=== PATIENT | female | born 1955 | race Caucasian/White ===

== ENCOUNTER → 2019-04-10 14:21 | Outpatient (CLI) | payer MEDICARE, OTHER, SELFPAY ==
[2019-04-10 14:42] LABS: Bacteria Urine None Seen
[2019-04-10 15:29] LABS: Add Manual Diff / Slide Review NO; Basophils Absolute Auto 100 /uL (0-100); Basophils Percent Auto 1.1 % (0-2); Eosinophils Absolute Auto 100 /uL (0-450); Hematocrit 45.4 % (36-46); Hemoglobin 15.1 g/dL (12.0-16.0); Lymphocytes Absolute Auto 2100 /uL (1100-4500); Lymphocytes Percent Auto 23.3 % (25-40); Mean Corpuscular HGB Conc 33.3 % (30-36); Mean Corpuscular Hemoglobin 29.5 PG (26-34); Mean Corpuscular Volume 88.6 fL (80-100); Monocytes Absolute Auto 600 /uL (0-900); Neutrophils Absolute Auto 6000 /uL (1500-7000); Neutrophils Percent Auto 67.6 % (50-75); Platelet Count 214 X10^3/uL (150-400); Red Blood Cell Count 5.13 X10^6/uL (4.0-5.2)
[2019-04-10 15:43] LABS: Hemoglobin A1C% w Est Avg Glu 5.8 % (4.0-6.0)
[2019-04-10 15:47] LABS: BUN Creatinine Ratio 35.7 (6-22); Blood Urea Nitrogen 25 mg/dL (7-17); Calcium 9.4 mg/dL (8.4-10.2); Carbon Dioxide 21 mmol/L (22-32); Chloride 107 mmol/L (98-107); Estimated Glomerular Filt Rate > 60.0 mL/min (>60); Glucose 89 mg/dL (80-110); HEMOLYSIS < 15 (0-50); Potassium 4.2 mmol/L (3.4-5.1); Sodium 139 mmol/L (137-145)
[2019-04-10 15:54] LABS: Appearance Urine UA SL CLOUDY; Bilirubin Urine UA NEGATIVE (NEGATIVE); Color Urine UA YELLOW; Glucose Urine UA NEGATIVE (Negative); Ketones Urine UA NEGATIVE (NEGATIVE); Leukocyte Esterase Urine UA NEGATIVE (NEGATIVE); Nitrite Urine UA NEGATIVE (Negative); Occult Blood Urine UA 1+ (Negative); Protein Urine UA NEGATIVE (Negative); Specific Gravity Urine UA >=1.030 (1.000-1.035); Urobilinogen Urine UA 0.2 E.U./dL (0.2)
[2019-04-10 16:12] LABS: Culture Indicated Urine Cult Not Indicated; RBC Urine 1-5/HPF (0-5/HPF); Squamous Epithelial Cell Urine 1-5 /HPF (0-5/HPF); Uric Acid Crystals Urine Many; WBC Urine 0-1/HPF (0-5/HPF)
== END ==
PROVIDERS: Referring Provider Orthopaedic Surgery; Visit Provider Orthopaedic Surgery
DX: Z01.818 Encounter for other preprocedural examination (principal); Z01.812 Encounter for preprocedural laboratory examination; R73.9 Hyperglycemia, unspecified; N39.0 Urinary tract infection, site not specified
CPT/HCPCS: 36415; 80048; 81001; 83036; 85025; 93005

== ENCOUNTER → 2019-04-11 05:47 | Outpatient (CLI) | payer MEDICARE, OTHER, SELFPAY ==
--- NOTE | 2019-04-11 06:10 | DI.MRI.S_ITS ---
PROCEDURE: MR KNEE LT WO CON INDICATIONS: M17.12 TECHNIQUE: Noncontrast sagittal PD fast spin echo and T2 fast spin echo with fat saturation, sagittal 3-D FLASH with fat saturation; coronal T1 spin echo and PD fast spin echo with fat saturation, and axial PD fast spin echo with fat saturation through the knee. COMPARISON: [facility] [place], [place], XR KNEE ARTHRITIC SERIES LT, 04/10/2019, 12:57. FINDINGS: Image quality: Excellent. Menisci: Poorly defined tear involving the posterior horn and body of the medial meniscus, possibly the posterior root. There is complete extrusion of the body. Lateral meniscus demonstrates possible myxoid degeneration of the body however no discrete tear of the seen by strict criteria. Cruciate ligaments: ACL is not well seen in keeping with complete rupture however this finding technically age-indeterminate and may be chronic. Posterior cruciate ligament appears grossly intact although internal signal changes suggest low-grade sprain versus mild mucoid degeneration. Medial structures: There is medial bowing of the medial collateral ligament, with mild internal signal changes and no complete rupture. There is adjacent soft tissue edema. The appearance could reflect reactive changes to medial compartment pathology, versus low-grade sprain of the MCL. Pes anserinus tendons appear grossly unremarkable. Semimembranosus tendon appears intact. Lateral structures: The lateral collateral ligament intact. Biceps femoris tendon appears intact. Popliteus tendon grossly unremarkable. Iliotibial band appears intact. Anterior structures: Quadriceps tendon intact. Medial and lateral patellofemoral ligaments intact. There is mild patellar tendinopathy. Prepatellar and superficial infrapatellar subcutaneous edema/fluid. Bones and cartilage: No focal marrow contusion or discrete low signal fracture line. Extensive bulky osteophyte formation is seen. Within the medial compartment, full-thickness loss of the femoral tibial articular cartilage, with subchondral sclerosis, cystic change and marrow edema. Partial-thickness loss of the posterior articular cartilage seen on the axial pulse sequence. Within the lateral compartment, diffuse surface fraying of the femoral and tibial articular cartilage without focal defect. There is also diffuse full-thickness loss of the posterior articular cartilage seen on axial pulse sequences. Within the patellofemoral compartment, near full-thickness loss of the cartilage overlying the lateral patellar facet. Elsewhere, there is diffuse partial-thickness loss surface fraying/fibrillation of the patellar and trochlear cartilage Joint space: Large joint effusion. Large Tejada's cyst. This measures approximately 7 cm in the cephalocaudad dimension. 5 mm loose body seen posterior to the lateral femoral condyle image 16/6. There are additional subcentimeter probable loose bodies seen within the medial aspect of the suprapatellar recess for example image 2/6. IMPRESSION: Poorly defined tear involving the posterior horn, root and body of the medial meniscus with complete extrusion. Lateral meniscus myxoid degeneration without discrete tear . 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 Low-grade sprain versus mucoid degeneration of the PCL (also likely chronic although age unknown). Severe degenerative joint disease including bulky diffuse osteophyte formation. Areas of near full thickness and full-thickness articular cartilage loss seen in all 3 compartments. Large joint effusion Large Tejada's cyst. Scattered multiple loose bodies as detailed above Dictated by: Vel Reed M.D. on 04/11/2019 at 9:09 Approved by: Vel Reed M.D. on 04/11/2019 at 9:21
== END ==
PROVIDERS: Referring Provider Orthopaedic Surgery; Visit Provider Orthopaedic Surgery
DX: M17.12 Unilateral primary osteoarthritis, left knee (principal); S83.242A Other tear of medial meniscus, current injury, left knee, initial encounter; M25.462 Effusion, left knee; M71.22 Synovial cyst of popliteal space [Baker], left knee
CPT/HCPCS: 73721

== ENCOUNTER → 2019-10-02 10:30 | Outpatient (CLI) | payer MEDICARE, OTHER, SELFPAY ==
[2019-10-02 11:24] LABS: Bacteria Urine None Seen; WBC Urine None Seen (0-5/HPF)
[2019-10-02 12:13] LABS: Appearance Urine UA CLEAR; Bilirubin Urine UA NEGATIVE (NEGATIVE); Color Urine UA YELLOW; Glucose Urine UA NEGATIVE (Negative); Ketones Urine UA NEGATIVE (NEGATIVE); Leukocyte Esterase Urine UA NEGATIVE (NEGATIVE); Nitrite Urine UA NEGATIVE (Negative); Occult Blood Urine UA 1+ (Negative); Protein Urine UA NEGATIVE (Negative); Specific Gravity Urine UA 1.025 (1.000-1.035); Urobilinogen Urine UA 0.2 E.U./dL (0.2)
[2019-10-02 12:16] LABS: Add Manual Diff / Slide Review NO; Basophils Absolute Auto 100 /uL (0-100); Basophils Percent Auto 0.8 % (0-2); Eosinophils Absolute Auto 100 /uL (0-450); Hematocrit 44.7 % (36-46); Hemoglobin 14.6 g/dL (12.0-16.0); Lymphocytes Absolute Auto 1600 /uL (1100-4500); Lymphocytes Percent Auto 20.6 % (25-40); Mean Corpuscular HGB Conc 32.6 % (30-36); Mean Corpuscular Hemoglobin 29.1 PG (26-34); Monocytes Absolute Auto 600 /uL (0-900); Monocytes Percent Auto 7.3 % (3-14); Neutrophils Absolute Auto 5600 /uL (1500-7000); Neutrophils Percent Auto 70.3 % (50-75); Platelet Count 243 X10^3/uL (150-400); Red Blood Cell Count 5.02 X10^6/uL (4.0-5.2); Red Cell Distribution Width 14.5 % (11.6-14.8); White Blood Cell Count 7.9 X10^3/uL (4.5-11.0)
[2019-10-02 12:18] LABS: Culture Indicated Urine Cult Not Indicated; RBC Urine 1-5/HPF (0-5/HPF); Squamous Epithelial Cell Urine 1-5 /HPF (0-5/HPF); Uric Acid Crystals Urine Few
[2019-10-02 12:30] LABS: BUN Creatinine Ratio 31.7 (6-22); Blood Urea Nitrogen 26 mg/dL (7-17); Calcium 9.1 mg/dL (8.4-10.2); Carbon Dioxide 29 mmol/L (22-32); Chloride 104 mmol/L (98-107); Estimated Glomerular Filt Rate > 60.0 mL/min (>60); Glucose 90 mg/dL (80-110); HEMOLYSIS < 15 (0-50); Potassium 4.6 mmol/L (3.4-5.1); Sodium 139 mmol/L (137-145)
[2019-10-02 12:32] LABS: Hemoglobin A1C% w Est Avg Glu 5.7 % (4.0-6.0)
== END ==
PROVIDERS: Referring Provider Orthopaedic Surgery; Visit Provider Orthopaedic Surgery
DX: Z01.812 Encounter for preprocedural laboratory examination (principal); R73.9 Hyperglycemia, unspecified; N39.0 Urinary tract infection, site not specified
CPT/HCPCS: 36415; 80048; 81001; 83036; 85025

== ENCOUNTER → 2019-10-05 13:08 | Outpatient (CLI) | payer MEDICARE, OTHER, SELFPAY ==
[2019-10-06 19:21] LABS: COVID19 Sendout Not Detected (Not Detect)
== END ==
PROVIDERS: Visit Provider Nurse Practitioner
DX: Z11.59 Encounter for screening for other viral diseases (principal)
CPT/HCPCS: 87635

== ENCOUNTER 2019-10-09 14:34 | Observation (INO) | payer MEDICARE, OTHER, SELFPAY ==
[2019-09-25 08:54] VITALS: BMI 39.0
[2019-10-08] VITALS (13 sets, daily range): BP systolic 93–131; BP diastolic 37–81; PULSE 65–78; RESP 16–23; TEMP 36.1–36.9; O2SAT 93–99; BMI 40.1
--- NOTE | 2019-10-08 | DI.RAD.S_ITS ---
PROCEDURE: XR KNEE LT 1TO2V INDICATIONS: total left knee TECHNIQUE: To view(s) of the knee acquired. [facility] [place] KNEE ARTHRITIC SERIES BI, 08/12/2019, 10:44. FINDINGS: Bones: Patient is status post left total knee joint arthroplasty. Hardware components are in expected positions. Visualized bony structures are intact. Soft tissues: Overlying postoperative changes are noted. IMPRESSION: Satisfactory appearance of the left total knee arthroplasty. Dictated by: Shay Guadarrama M.D. on 10/08/2019 at 14:14 Approved by: Shay Guadarrama M.D. on 10/08/2019 at 14:14
--- NOTE | 2019-10-08 07:46 | P.OP_ITS ---
Operative Date/Time/Diagnoses Date of procedure: 10/08/19 Time of procedure: 11:04 Pre-op diagnosis: Severe left knee OA Post-op diagnosis: same Procedure & Clinicians Procedure: Left total knee arthroplasty Same procedure as scheduled: Yes Indications: The patient has had progressively worsening left knee pain with radiographic changes consistent with arthritis. Non-operative management has failed and the patient has requested total knee replacement. The risks, benefits and alternatives to surgery were discussed with the patient prior to proceeding. Risks discussed included, but were not limited to, failure to relieve pain, stiffness, infection, nerve damage, deep venous thrombosis, pulmonary embolism, stroke, coma, heart attack, permanent paralysis and , as well as the potential need for eventual revision of the prosthetic. Surgeon: Melva Feng Relay Assembler: Dante Damon Anesthesia Type: General and Spinal Operative Notes Findings: Severe left knee osteoarthritis, adequate quality bone, adequate range of motion Closure Type: primary Specimen(s): none sent Prosthetic devices, grafts, tissues, transplants, or devices: Feng and Nephew size 6 tibia, +9 poly Journey BCS 2 size 7 femur, 35 oval patella Applied: drain(s) Estimated Blood Loss (mL): 250 Blood products transfused: none Tourniquet time (min): 89 Procedure in detail: The patient was seen in the pre-operative area, where the patient identified the left knee as the operative site and this was marked with my initials. The patient received pre-operative antibiotics, and was taken to the operating room and placed on the operative table in the supine position. After satisfactory anesthesia, a multimedia educational specialist out was performed. The left leg was encircled with a tourniquet about the proximal thigh, and the leg was prepared from the toes to the tourniquet with ChloroPrep in the usual fashion and draped through sterile drapes. The leg was elevated and exsanguinated with Eschmark bandage and the tourniquet inflated to [250] mmHg pressure. The knee was approached through an approximately 18 cm incision centered over the patella and carried into the knee through a medial parapatellar arthrotomy. A portion of the medial and lateral meniscus was resected. Soft tissue was carefully mobilized around the patella the patella was measured with a caliper. Bone was resected from the patella and the patellar height was reconstituted with up an appropriate sized patellar component. For a cover was then placed on the patella. A small amount of additional medial and lateral meniscus was resected. The visionary guide fit well to the distal femur. It looked like an appropriate distal femoral cut and the cut was made without difficulty. The rotation was assessed and the appropriate size femoral guide was placed on the distal femur and finishing cuts were made. There is no evidence of notching. There were massive osteophytes medially and posteriorly and a large Tejada's cyst that was drained. The anterior, posterior and chamfer cuts were then made. The posterior osteophytes and soft tissues were then removed. The posterior capsule was injected with part of a mixture of 60 ml 0.25% Marcaine mixed with 20 ml Exparel for post operative pain control. The remainder of this mixture was injected into the capsule and subcutaneous tissues during cement curing. The tibia was prepared and the visionaire guide fit well to the distal tibia. The rotation was assessed. The patient was placed in extension residual medial and lateral meniscus as well as any residual bone was carefully resected. [No] additional tibia was resected. Hemostasis was achieved especially posteriorly. Additional local was injected into the posterior capsule. The extension gap was assessed and additional releases for gap balancing were performed as necessary. It was checked with the gap photovoltaic technician. The femoral component was trial was placed and the notch was finished. Trial tibial and femoral components were then placed and the knee placed through a range of motion. Range of motion was [0-130], with good stability throughout the range. The trials were then removed, and the tibia was finished. The bone was prepared with pulsatile lavage, and dried with a sponge. Cement was applied and the final prosthetics placed. Excess cement was removed during and after cement curing. A brief Betadine soak was performed. After confirming there was no extruded cement posteriorly, the final tibial insert was placed. The knee was copiously irrigated and the tourniquet deflated. Hemostasis was obtained with the Bovie. A drain was placed and brought out superolaterally. The capsule was closed with interrupted # 1 Vicryl. The subcutaneous layer was closed with barbed sutures, and the skin with a running 3-0 V-Lock suture and Surgical glue. An Aquacel Ag dressing was applied and the patient was taken to recovery having tolerated the procedure well. Complications: none Post-operative Condition: stable Disposition: Acute Care Plan for aftercare: The patient will be maintained on a standard total knee replacement protocol with weight bearing as tolerated. The patient will receive aspirin and sequential compression devices for DVT prophylaxis. The patient will be discharged home when safe for the home environment.
--- NOTE | 2019-10-08 09:06 | SUR.PREOP ---
clarified med orders with Dr. Feng meloxicam & celebrex; VTO to give only Meloxicam
[2019-10-08] MEDS: MELOXICAM 7.5 MG TABLET 15 MG PO (09:16)
[2019-10-08] MEDS: LACTATED RINGERS 1,000 ML 42 ML IV ×2 (09:17→11:27)
[2019-10-08] MEDS: VANCOMYCIN 1,000 MG/200 ML PIGGYBACK 200 MG IV (09:35)
--- NOTE | 2019-10-08 10:07 | PM.PREOP ---
Pre-operative Note COVID-19 COVID-19 status: Negative Interval Note History & Physical reviewed/Exam performed by Physician: Yes Changes to H&P: No H&P completed within 30 days and has changed as indicated here:: HEENT benign, lungs clear, cor regular rate and rhythm abdomen soft and benign, severe pain with left knee range of motion with crepitation in decreased range of motion
--- NOTE | 2019-10-08 10:15 | SUR.PREOP ---
Pt c/o intense scalp itching, infusion stopped and Dr. Feng was notified. She stated to keep it stopped and that they may infuse it at a slower rate later. Pt informed of plan.
[2019-10-08] MEDS: CEFAZOLIN 2 GM/100 ML FROZ.PIGGY IV ×2 (10:40→18:14)
[2019-10-08] MEDS: BUPIVACAINE 0.25% W/ EPI 30 ML VIAL 60 ML INJ (11:00)
[2019-10-08] MEDS: BUPIVACAINE LIPOSOME 266 MG/20 ML VIAL INJ (11:01)
[2019-10-08] MEDS: TRANEXAMIC ACID 1,000 MG VIAL 1000 MG INJ ×2 (11:01→12:09)
--- NOTE | 2019-10-08 11:04 | SUR.OPER ---
Supine on padded OR bed. Pillow under head, arms secured on padded armboards <90 degree abduction. Safety belt across torso. Non-operative leg secured with tape over blanket over lower leg. Operative leg secured in [place] positioner. Foam padded brace at thigh of operative leg.
--- NOTE | 2019-10-08 13:27 | SUR.PHASEI ---
Report called to floor earlier, xray here now. Plan to take pt who is completely stable and taking ice chips without problems up to room 208 after knee xray
[2019-10-08] MEDS: LACTATED RINGERS 1,000 ML 100 ML IV (14:16)
[2019-10-08] MEDS: IBUPROFEN 400 MG TABLET PO ×3 (14:18→21:42)
[2019-10-08] MEDS: OXYCODONE IR 5 MG TABLET PO ×3 (15:21→23:36)
--- NOTE | 2019-10-08 15:25 | PC.NURSE ---
IV fluids infusing; LS clear, RA=95%, IS 2300; Hx smoking; STOP BANG negative; Oxycodone 5 mg for moderate pain; Hemovac unclamped @1430; friend in room
--- NOTE | 2019-10-08 16:38 | PT.IIE ---
Current Diagnoses Unilateral primary osteoarthritis, left knee (10/08/19) Surgery Performed Operation Date: 10/08/19 10:45 Actual Procedures p Total Knee Arthroplasty(Left) - Melva Feng MD Surgical History (Last Updated 10/08/19 @ 09:03 by Kenya Zambrano, RN) H/O foot surgery (Acute) History of ankle surgery (Acute) History of arthroplasty of right knee (Acute) History of dilatation and curettage (Acute) History of hysterectomy (Acute) Hx of appendectomy (Acute 2017) Hx of arthroscopy of right knee (Acute) Hx of thumb surgery (Acute) Hx of tonsillectomy (Acute) Medical History (Last Updated 10/08/19 @ 09:05 by Kenya Zambrano, RN) Acid reflux (Acute) Anesthesia complication (Acute) Arthritis (Acute) Constipation (Acute) Cough (Acute) Diarrhea (Acute) Difficulty swallowing (Acute) Elevated cholesterol (Acute) History of prosthetic unicompartmental arthroplasty of right knee (Acute) History of revision of total replacement of right knee joint (Acute) Hx of ectopic (Acute) Obesity (Acute) Osteoarthritis (Acute) RLS (restless legs syndrome) (Acute) Seasonal allergies (Acute) Sinus drainage (Acute) Physical Therapy Inpatient Evaluation/Re-Eval M1 PT/OT-IP Prior Functional Status Start: 10/08/19 15:19 Freq: NEEDED Status: Active Protocol: Document 10/08/19 16:16 AW (Rec: 10/08/19 16:38 AW [id number]) Medical Review Prior Functional Status Medical History Reviewed Yes Communication WNL. Pt is an effective verbal communicator. Mobility and Gait Pt uses forearm crutches 100% of the time due to chronic bilateral knee pain. She has history of multiple right knee surgeries with limited ROM on the right knee. Activities of Daily Living and IADL's Independent Social History Household Members spouse Living Arrangements House Number of Floors (Floors) Two Floors Number of Stairs To Enter/Railing? Home details refer to pt's sister's home since pt has planned to stay there at discharge. Pt has 1 platform LUTHER at her sister's house to access the basement where she will stay. Home Environment Standard Height Toilet,Tub/ Shower Home Equipment Front Wheel Walker,Crutches, Raised Toilet Seat w/Armrests, Shower Seat with Backrest,Hand Held Shower,Grab Bars In Shower Additional Social History Comment Pt lives with her , Asif , but plans to stay with her sister at discharge. Her sister, Sveta, will be able to drive her to all appointments. M2 PT-IP Current Condition Start: 10/08/19 15:19 Freq: NEEDED Status: Active Protocol: Document 10/08/19 16:16 AW (Rec: 10/08/19 16:38 AW [id number]) Physical Therapy Current Condition Current Condition Evaluation Date 10/08/19 Treatment Diagnosis L TKA; difficulty in walking Onset Date 10/08/19 Weight Bearing Status Weight Bearing Status Weight Bear as Tolerated M3 PT-IP Subjective Start: 10/08/19 15:19 Freq: NEEDED Status: Active Protocol: Document 10/08/19 16:16 AW (Rec: 10/08/19 16:38 AW [id number]) Subjective Physical Therapy Visit Type Type Initial Evaluation Visit Start Time 15:34 Visit Stop Time 16:09 Total Visit Minutes 35 Notes Pt's sister, Sveta, present throughout evaluation. Physical Therapy Visit Comments Patient Comments Pt is willing to participate with PT. Patient Goals Planning to discharge to her sister's house until able to safely manage stairs. Therapy Pain Assessment Pain When Pain Assessed During Mobility Pain Present Pain Present Pain Reported Location right hip Intensity 6 Scale Used Numeric (0 - 10) Pain Management Techniques Apply Cold,Timing of Activity with Medications M4 PT-IP Mobility and Gait Start: 10/08/19 15:19 Freq: NEEDED Status: Active Protocol: Document 10/08/19 16:16 AW (Rec: 10/08/19 16:38 AW [id number]) PT-Bed Mobility Assessment Supine to Sit Supine to Sit Minimal Assistance,1 Person Assistance,Bedrails Scooting Scooting to Edge of Bed Standby Assistance PT-Transfer Assessment Sit to and From Stand Sit to and from Stand Contact Guard Assistance,1 Person Assistance,Use of Upper Extremities Equipment Transfer Assistive Device Gait Belt,Front Wheeled Walker Orthotic/Prosthetic Devices or Brace: No Transfers Transfer Destination Chair,Bedside Commode Transfer Technique pt ambulated with FWW Transfer Ability Level of Assist Contact Guard Assistance,1 Person Assistance,Use of Upper Extremities Comments Mobility Comments Pt was sitting up in the bed visiting with her sister when PT arrived. With HOB flat, she completed supine to sit with min A x 1 to support her operative leg and to pull up to sitting. Sitting balance was normal with pt able to sit EOB without UE support for assessment. She requested to use the BSC and stood from the bed in lowest position using FWW CGA. With assist for line management, pt step pivot transferred to the BSC to void . Once finished, she stood using FWW CGA and completed pericare with one hand on the walker for balance support. At that time, it was noted that the distal attachment of the hemovac drain had become dislodged and there was blood on the floor. PT used the call light to alert the RN who came and assisted with hemovac . Pt ambulated 8 feet to the chair with FWW CGA and transferred with cues to line up the walker with the chair before attempting to sit. Pt was positioned on the chair with ice applied to the left knee, call light and all needs in reach. Gait Assessment Gait Gait Assistance Required: Contact Guard Assist Distance (Feet) 8 Able to Maintain Weight Bearing Status Yes During Gait Assistive Devices Assistive Device Gait Belt,Front Wheeled Walker Gait Deviations General Gait Pattern Antalgic,Decreased Stride Length,Decreased Feet Clearance,Flexed Trunk,Step-to Gait Factors Limiting Gait Function Factors Limiting Gait Function Decreased Activity Tolerance, Decreased Sensation,Decreased Strength,Difficulty Following Directions,Limited Range of Motion,Pain,Poor Balance,Poor Safety Awareness Comments Gait Comments Pt was somewhat impulsive, requiring cues to slow down and to keep the walker with her until certain she is ready to transfer. Stair Climbing Assessment Comments Stair Climbing Comments Not assessed. PT-Balance Assessment Sitting Balance and Reactions Static Sitting Balance Ability Normal Dynamic Sitting Balance Ability Normal Standing Balance and Reactions Static Standing Balance Ability Good Dynamic Standing Balance Ability Good Device Used FWW M5 PT-IP Objective Assessments Start: 10/08/19 15:19 Freq: NEEDED Status: Active Protocol: Document 10/08/19 16:16 AW (Rec: 10/08/19 16:38 AW [id number]) Orientation Orientation/Cognition Level of Alertness Alert Orientation Name,Day of Week,Place, Situation Language Function Ability Expressive Aphasia Safety Awareness Decreased Safety Awareness Memory Description No Deficits Noted Gross Range of Motion Upper Extremity ROM Assessment Within Functional Limits Lower Extremity ROM Assessment Bilaterally Impaired Strength Lower Extremity Strength Assessment Bilaterally Impaired Hip 4-/5 Knee R 4/5; L 3/5 Coordination Assessment Gross Coordination Gross Coordination WNL Sensation Assessment Sensation Gross Sensation WNL M6 PT-IP Treatment Start: 10/08/19 15:19 Freq: NEEDED Status: Active Protocol: Document 10/08/19 16:16 AW (Rec: 10/08/19 16:38 AW [id number]) Physical Therapy Treatment Exercises Exercises Ankle Pumps,Gluteal Sets Education Education Provided Precautions,Weight Bearing Status,Post-Op Packet,Safety Other Treatments Other Treatment Performed Provided education on role of PT, plan of care, weightbearing status, and safe use of FWW. M7 PT-IP Assessment and Plan Start: 10/08/19 15:19 Freq: NEEDED Status: Active Protocol: Document 10/08/19 16:16 AW (Rec: 10/08/19 16:38 AW [id number]) PT Summary Assessment and Plan Potential Rehabilitation Potential Good Status of Condition at Evaluation Evolving Summary Impairments Pain,ROM,Strength,Balance,Bed Mobility,Transfers,Gait, Activity Tolerance Assessment Summary Edwin is a 64 yo woman seen for PT evalution on POD0 following L TKA. She is modified independent at baseline with forearm crutches due to chronic bilateral knee pain. She is planning to stay with her sister when she discharges. Her sister's house is well-equipped and the sister has helped another sibling following knee surgery before. On evaluation, pt required min assist for bed mobility and CGA for transfers and short distance ambulation with FWW. PT anticipates she will progress as she stabilizes and will be safe to discharge to her sister's house with family assist and outpatient PT. Goals Bed Mobility Goal Standby Assistance Transfer Goal Standby Assistance,Front Wheeled Walker Gait Goal Standby Assistance,Front Wheel Walker Gait Distance 150 Other Goals - up/down one platform step with FWW SBA Days to Meet Goals 2 Frequency of Treatment Frequency Of Treatment Twice a Day Treatment Plan Physical Therapy Treatment Plan Bed Mobility Training,Transfer Training,Gait Training, Therapeutic Exercise,Balance Retraining,Post Op Education, Discharge Planning,Hot or Cold Pack,Neuromuscular Re-ed Recommendations To Nursing Amount of Assist Needed 1 Person Assist Discharge Recommendations PT Discharge Recommendations Home with Assistance, Outpatient PT Equipment Needed for Home Before may consider tub transfer Discharge bench Transportation Needs at Discharge Private Vehicle
[2019-10-08] MEDS: DOCUSATE 100 MG CAPSULE PO (21:40)
--- NOTE | 2019-10-09 00:33 | PC.NURSE ---
Addendum entered by Tamanna Jacob R.N. 10/09/19 05:24: Slept most of shift. States pain this morning upon wakening and getting up to bathroom is 6/10 and sharp in places; medicated with scheduled Ibuprofen but declines narcotics. Ice pack applied. States numbness in buttock and face has resolved. Is now passing flatus. Original Note: Patient seen and assessed at 2344. Is alert and oriented. Breath sounds CTA with RA sat of 96%. HRR. Denies nausea. BT present but denies flatus as yet. Is up to bathroom with 1 assist + walker and voiding without problem; denies dysuria, frequency or urgency. Is able to move self in bed. Aquacel dressing covered with shobha wrap to left knee is CDI; hemovac is intact and compressed. States she still has some residual numbness in left buttock and face probably related to anesthesia. CMS of bilateral LE is intact although pedal pulses are weak. Wearing bilateral calf SCD's. Complained of 4/10 left knee pain and was medicated with Oxycodone and ice pack applied. Fall risk score is moderate and bed alarm is activated.
[2019-10-09] MEDS: IBUPROFEN 400 MG TABLET PO ×3 (01:04→08:19)
[2019-10-09] MEDS: LACTATED RINGERS 1,000 ML 100 ML IV (01:05)
[2019-10-09] MEDS: CEFAZOLIN 2 GM/100 ML FROZ.PIGGY IV (02:25)
[2019-10-09 05:31] VITALS: BP 113/64; PULSE 74; RESP 16; TEMP 36.6; O2SAT 97
[2019-10-09] MEDS: OXYCODONE IR 5 MG TABLET PO ×2 (06:35→17:29)
[2019-10-09 06:39] LABS: Hematocrit 40.2 % (36-46); Hemoglobin 13.2 g/dL (12.0-16.0)
[2019-10-09 07:20] VITALS: BP 129/72; PULSE 74; RESP 19; TEMP 36.4; O2SAT 96
--- NOTE | 2019-10-09 07:28 | P.PN_ITS ---
Subjective Subjective Date Patient Seen: 10/09/19 Time Patient Seen: 07:28 Interval history: She notes that she did have moderate to significant pain overnight. She had a little difficulty resting. She has been up with physical therapy and is urinating without difficulty. She notes predominantly medial joint line pain and a little bit of clicking. Exam Vital Signs (past 8 hours): - 10/08/19 23:58 10/09/19 05:31 Temperature 97.6 F 97.8 F Pulse Rate 71 74 Respiratory Rate 16 16 Blood Pressure 110/66 113/64 Pulse Oximetry 96 97 Oxygen Delivery Method Room Air Oxygen Flow Rate 0 Narrative Exam Narrative: HEENT is benign she is alert she is oriented her lungs are semaj r, she can do an active straight leg raise on the left her dressing is dry her calfs are soft bilaterally, neurologically intact distally Objective Labs Result Diagrams: 10/09/19 06:20 Labs: Laboratory Results - last 24 hr 10/09/19 06:20 Hgb 13.2 Hct 40.2 Assessment & Plan Assessment & Plan narrative: Doing well status post left total knee arthr oplasty. Plan continue to mobilize with physical therapy today. Anticipate discharge to home in the afternoon as long as she is cleared with physical therapy. Keep previously scheduled outpatient appointment postoperatively and begin outpatient physical therapy. Quality VTE Deep Vein Thrombosis/Pulmonary Embolism Present on Admission: No
[2019-10-09] MEDS: DOCUSATE 100 MG CAPSULE PO ×2 (08:19→21:23)
[2019-10-09] MEDS: ASPIRIN EC 81 MG TABLET PO (08:19)
--- NOTE | 2019-10-09 10:15 | PT.IPTN ---
Current Diagnoses Unilateral primary osteoarthritis, left knee (10/08/19) Surgery Performed Operation Date: 10/08/19 10:45 Actual Procedures p Total Knee Arthroplasty(Left) - Melva Feng MD Physical Therapy Treatment Note M2 PT-IP Current Condition Start: 10/08/19 15:19 Freq: NEEDED Status: Active Protocol: Document 10/08/19 16:16 AW (Rec: 10/08/19 16:38 AW [id number]) Physical Therapy Current Condition Current Condition Evaluation Date 10/08/19 Treatment Diagnosis L TKA; difficulty in walking Onset Date 10/08/19 Weight Bearing Status Weight Bearing Status Weight Bear as Tolerated M3 PT-IP Subjective Start: 10/08/19 15:19 Freq: NEEDED Status: Active Protocol: Document 10/09/19 09:40 SP (Rec: 10/09/19 12:54 SP [email or web address]) Subjective Physical Therapy Visit Type Type Treatment Note Visit Start Time 09:40 Visit Stop Time 10:15 Total Visit Minutes 35 Number of CLINICAL DATA ASSISTANT Visits 1 Physical Therapy Visit Comments Patient Comments Pt willing to participate with therapy. Patient Goals Planning to discharge to her sister's house until able to safely manage stairs. Therapy Pain Assessment Pain When Pain Assessed During Mobility Pain Present Pain Present Pain Reported Location left knee Intensity 6 Scale Used Numeric (0 - 10) Description Aching Pain Behaviors Facial Grimacing,Restlessness Pain Management Techniques Apply Cold,Re-positioning, Timing of Activity with Medications M4 PT-IP Mobility and Gait Start: 10/08/19 15:19 Freq: NEEDED Status: Active Protocol: Document 10/09/19 09:40 SP (Rec: 10/09/19 12:54 SP [email or web address]) PT-Bed Mobility Assessment Supine to Sit Supine to Sit Contact Guard Assistance,1 Person Assistance,Bedrails Sit to Supine Sit to Supine Standby Assistance Scooting Scooting to Edge of Bed Standby Assistance Scooting Up and Down in Bed Standby Assistance PT-Transfer Assessment Sit to and From Stand Sit to and from Stand Contact Guard Assistance,1 Person Assistance,Use of Upper Extremities Equipment Transfer Assistive Device Gait Belt,Front Wheeled Walker Orthotic/Prosthetic Devices or Brace: No Transfers Transfer Destination Chair,Toilet,Wheelchair Transfer Technique pt ambulated with FWW Transfer Ability Level of Assist Contact Guard Assistance,1 Person Assistance,Use of Upper Extremities Comments Mobility Comments Pt was supine when arrived reported pain about 6/10 at rest and no significant decrease during mobility. Supine>sitting CGA with use of bed rail and bed for self support to transition to sitting. Scoot to EOB SBA using BUE and unsupported while sitting at EOB, BP assessed 132/74 HR 78 with no report of dizziness. Sit <> stand from EOB BUE CGA using FWW Ambulated to bathroom approx 8 ft CGA w/ FWW, SPT backing up to toilet and perform self brief mgt with 1 UE while other supported on grab bar then transitioned to toilet to slow descend to sit CGA. Pt able to void and complete self hygiene in sitting. Sit > stand with BUE on grab bar and fWW close SBA. Pt able to manage brief herself in standing with other UE on FWW close SBA, ambulated to sink approx 10 ft with FWW proper positioning complete hand washing with contact sink as needed, SBA. Pt reported felt little dizzy so walked back to chair with FWW SPT to back up to chair and SBA slow descent BUE on chair arms. BP 131/76 HR 84. Pt dizziness recovered within 1 min. Pt sit >stand and walked further distance to into hallway usign FWW CGA with noted heavy BUE WB on FWW intermittent cuing for upright posture, knee flexion and heel toe gait patterning on L to improved foot clearance and stride length little more than step to initially, w/c follow approx 50 ft wtih 2 stop stand rests before required seated rest, when taking R LE step back to locked w/c R knee and R hip unlocked but patient was able to stabilize herself BUE on FWW before transitioning UE to w/c. Nurse arrived in hallway once sitting. Pt reported feeling dizzy more as sat. CLINICAL DATA ASSISTANT and nurse did not recommend assessment of platform step at this time due to decreased LE strength in standing and dizziness. CLINICAL DATA ASSISTANT pushed patient back to the room in w/c while she held BUE herself and nurse trailed with FWW. Pt sit > stand from w/c ambulated approx 5 ft using fWW CGA for safety to L EOB requesting to lay down, very tired and still little dizzy. Sitting >supine SBA with ability to lift LLE itself and lateral, superior scoot up in bed with RLE and BUE. Reapplied cold pack over LLE. Reviewed LE HEP: ankle pumps, heel slide with use of gait belt, quad set x5 each. Pt had call light and all needs in reach before left. CLINICAL DATA ASSISTANT recommended further acute PT in pm and coordinating with sister at 2 pm to complete caregiver training with agreement and she said will call and coordinate that. Pt stated didn't want any pain meds earlier when nurse asked jennifer tx but both stated maybe tylenol would help with the pain and maybe not get nauseous so can eat more for energy. PT was supine resting when left. Gait Assessment Gait Gait Assistance Required: Standby Assistance,Contact Guard Assist,1 Person Assist Distance (Feet) 50 Able to Maintain Weight Bearing Status Yes During Gait Assistive Devices Assistive Device Gait Belt,Front Wheeled Walker Orthotic/Prosthetic Devices or Brace: No Gait Deviations General Gait Pattern Antalgic,Decreased Stride Length,Decreased Feet Clearance,Flexed Trunk,Step-to Gait Factors Limiting Gait Function Factors Limiting Gait Function Decreased Activity Tolerance, Decreased Sensation,Decreased Strength,Difficulty Following Directions,Limited Range of Motion,Pain,Poor Balance,Poor Safety Awareness Comments Gait Comments See mobility comments for details. Stair Climbing Assessment Comments Stair Climbing Comments Unable to assess platform step due to dizziness and R hip/ knee instabilty during gait , step back to sit into w/c while in hallway. PT-Balance Assessment Sitting Balance and Reactions Static Sitting Balance Ability Normal Dynamic Sitting Balance Ability Normal Standing Balance and Reactions Static Standing Balance Ability Good Dynamic Standing Balance Ability Fair Device Used FWW M5 PT-IP Objective Assessments Start: 10/08/19 15:19 Freq: NEEDED Status: Active Protocol: Document 10/08/19 16:16 AW (Rec: 10/08/19 16:38 AW [id number]) Orientation Orientation/Cognition Level of Alertness Alert Orientation Name,Day of Week,Place, Situation Language Function Ability Expressive Aphasia Safety Awareness Decreased Safety Awareness Memory Description No Deficits Noted Gross Range of Motion Upper Extremity ROM Assessment Within Functional Limits Lower Extremity ROM Assessment Bilaterally Impaired Strength Lower Extremity Strength Assessment Bilaterally Impaired Hip 4-/5 Knee R 4/5; L 3/5 Coordination Assessment Gross Coordination Gross Coordination WNL Sensation Assessment Sensation Gross Sensation WNL M6 PT-IP Treatment Start: 10/08/19 15:19 Freq: NEEDED Status: Active Protocol: Document 10/09/19 09:40 SP (Rec: 10/09/19 12:54 SP [email or web address]) Physical Therapy Treatment Exercises Exercises Ankle Pumps,Gluteal Sets,Quad Sets,Heel Slides Education Education Provided Precautions,Weight Bearing Status,Post-Op Packet,Safety Other Treatments Other Treatment Performed Weightbearing status, and safe use of FWW. M7 PT-IP Assessment and Plan Start: 10/08/19 15:19 Freq: NEEDED Status: Active Protocol: Document 10/09/19 09:40 SP (Rec: 10/09/19 12:54 SP [email or web address]) PT Summary Assessment and Plan Potential Rehabilitation Potential Good Status of Condition at Evaluation Evolving Summary Impairments Pain,ROM,Strength,Balance,Bed Mobility,Transfers,Gait, Activity Tolerance Assessment Summary Pt requires CGA- SBA during all mobility using fWW. Pt became dizzy during gait adn R hip/knee instability/buckle during step back to sit in w/c end of 50 ft distance BUE on FWW and CGA for safe recovery and slow descend into w/c, assist to pushed back to room while holdign BLE with RLE. Pt is planning to stay with her sister when she discharges. Her sister's house is well- equipped and the sister has helped another sibling following knee surgery before. Planned caregiver training at 2 pm today, hoping for improvement in mobilty, complete 1 step mgt to allow enterance to sister's house, will continue to assess progress. Recommending outpatient PT when safe to discharge. Goals Bed Mobility Goal Standby Assistance Transfer Goal Standby Assistance,Front Wheeled Walker Gait Goal Standby Assistance,Front Wheel Walker Gait Distance 150 Other Goals - up/down one platform step with FWW SBA Days to Meet Goals 2 Frequency of Treatment Frequency Of Treatment Twice a Day Treatment Plan Physical Therapy Treatment Plan Bed Mobility Training,Transfer Training,Gait Training, Therapeutic Exercise,Balance Retraining,Post Op Education, Discharge Planning,Hot or Cold Pack,Neuromuscular Re-ed Recommendations To Nursing Amount of Assist Needed 1 Person Assist Discharge Recommendations PT Discharge Recommendations Home with Assistance, Outpatient PT Equipment Needed for Home Before may consider tub transfer Discharge bench Transportation Needs at Discharge Private Vehicle
[2019-10-09] MEDS: ACETAMINOPHEN 325 MG TABLET 650 MG PO ×2 (10:47→15:21)
[2019-10-09 11:30] VITALS: BP 123/73; PULSE 73; RESP 19; TEMP 36.5; O2SAT 98
--- NOTE | 2019-10-09 13:07 | PC.NURSE ---
Addendum entered by Duc Duvall R.N. 10/09/19 15:27: Patient declined toradol, stating she forgot to note it on her list of allergies but states she had an adverse reaction to it previously, stating it caused anxiety and racing heart. Patient given tylenol at this time, and states she may try ibuprofen with dinner tonight. Worked with P.T. and now up in chair ordering dinner, feeling a little better after her nap. Call light within reach. Addendum entered by Duc Duvall R.N. 10/09/19 14:57: Spoke earlier with Dr. Feng regarding patient's complaints (see previous note), patient finally had fallen asleep and able to rest for about [address] Feng cancel discharge for today and monitor tonight. Ok to continue with orders in place, and attempt activity and stairs as tolerated with P.T. Patient is up working with P.T. currently. Tylenol frequency increased and order for one time dose of toradol (to give in place of one dose of ibuprofen per Dr. Feng) received for increased pain management. Original Note: Patient had complained of some dizziness and intermittent nausea this morning when up in chair trying to eat breakfast. She states she has a lot of allergies and sensitivities to medications and felt symptoms likely related to the oxycodone she took earlier. Patient says she will try using just tylenol for pain management at this point. Patient assisted back in to bed to rest after breakfast. Patient then attempted to work with P.T. and was up in hallway and felt she had some dizziness and nausea again and planned to rest again and then attempt stair training with P.T. in afternoon. Patient felt better resting in bed, with call light within reach. Using tylenol, ice packs and repositioning for assistance with moderate pain. Update: During patient check, patient is up in chair having just finished her lunch and sister now visiting in room. Patient reports her face feels kind of numb and tingling like she has spider webs across her face. She reports that this happened at some point earlier in the director of distance learning as well. She reports that she had areaction to one of the antibiotics given prior to surgery with an itchy tingling top of her head that is now resolved. Patient wanting to get back into bed to rest. Assisted to do so. Denies shortness of breath at this time. Vital signs remain stable. Call placed to Dr. Feng to update. clinical education coordinator updated. Will continue to monitor.
--- NOTE | 2019-10-09 14:42 | CM.DANOTE ---
Patient is a 64 year old female who was admitted on 10/08/19 for LTKA. Pt has [facility] and [employer] for insurance and her PCP is Dr. Romeo. EMR was reviewed. Per Ortho MD, pt had some pain overnight but has been voiding independently and possible d/c home later today pending further PT and pain management with oral meds. Per PT, able to work a little with pt this morning after having some bp/dizziness issues and plan is for d/c to sister's house for 24/ care and outpt PT. SW met briefly bedside with pt and explained role and pt confirms she lives at home with her and is independent at baseline and uses forearm crutches 100% of the time prior to surgery. Pt has had multiple knee surgeries and knows what to expect for recovery and therefore she will d/c to sister's house for 05/09 assist and sister will provide transport for follow up appointments until she is safe for return home. Pt does not anticipate any further needs at d/c and will work with PT again this afternoon to determine safe d/c home this evening vs tomorrow. Plan: SW to follow for plan of d/c home to sister's house via sister POV and outpt PT when medically stable this evening or tomorrow. MORRIS Shah Discharge Planning/Care Management CM Discharge Assessment Start: 10/09/19 14:40 Freq: Status: Active Protocol: Document 10/09/19 14:40 BF (Rec: 10/09/19 14:42 BF [id number]) Discharge Planning Assessment Assigned Iron Molder Helper MORRIS Miller DPOA/Assigned Designee Name Asif Contact Information [phone] Advance Directives? Yes Advance Directives on File No History Provided By Patient,Medical Record Has Patient been admitted in last 30 No days? Prior Living Arrangements House Household Members spouse Type of transporation used prior to Drives own vehicle admit Independent with ADL's Yes Is patient alert and oriented? Yes Caregiver for Another No Community Services used prior to Physical Therapy admission: DME Already Rented / Owned FWW / Walker,Crutches Patient/Family Preference OP PT Therapy Barriers to Discharge No Discharge Plan Home Community Services Physical Therapy Transportation Arrangement Sister bedside and will be the one providing transport at d/ c Referrals Initiated None needed Review Status In Process Please Provide Date Initial DC 08/26/20 Assessment Was Performed Next Review Type Continued Stay Review Pre-Anesthesia Assessment Start: 09/25/19 08:54 Freq: Status: Complete Protocol: Document 09/25/19 08:54 [facility] (Rec: 09/25/19 09:41 CAB [id number]) Pre-Anesthesia Assessment PAC Comment Pt wants a nicotine patch Preferred Name Edwin Patient Information Reviewed Via Phone Assessment Assessment Completed With Patient Comment Pt needs to do labs/EKG, COVID screen @ 10/05/19 Primary Care Provider None Seen Specialist in Last 12 Months Yes Specialist Seen Orthopedist Primary Language Irish Knitted Cloth Examiner Required No Height 172.72 cm Weight 116.573 kg Body Mass Index (BMI) 39.0 Hearing Ability Normal Visual Assist Glasses Dentition Type Teeth, Natural Present Barriers to Learning None Other Aids No Hx Anesthesia Reactions Yes: Fentanyl makes me gasp for air, severe hallucinations Hx Family Anesthesia Reaction No Hx Malignant Hyperthermia No Hx Blood Transfusions No Anesthesia Review Requested No alcohol intake current alcohol intake frequency a few times a week Smoking Status Current every day smoker Tobacco type cigarettes Smoking packs per day 1 Substance Use Type does not use Pain Present Pain Reported Musculoskeletal Symptoms Abnormal Gait,Difficulty Walking,Joint Pain,Muscle Cramps History of Falling (Recent or History of Yes ) Patient is completely paralyzed or No completely immobile Prosthesis or Orthotic Device Crutches Mental Status Oriented to own ability Is patient on oxygen? 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 No Cardiac Clearance Received Not Applicable Diet Type At Home Regular dysphagia Yes: Occasionally with pills Gastrointestinal Symptoms Reflux Bladder Pattern Frequency,Urgency Urinary Catheter Present No Hx Urinary Self Catheterization No HgbA1C 5.8 Date 04/10/19 Patient No Lactating No Hx Drug Resistant Organism No Presence of External or Internal Medical Yes: Right knee prosthesis Devices Have you had any close contact with No someone diagnosed with COVID-19? Marital Status Lives With spouse Prior Living Arrangements House Number of Floors (Floors) 3 or More Floors Support System Sibling(s),Spouse Does the Patient Have Assistance After No: Pt will stay w/sister in [place], [facility] does not help Patient Discharge Plan Description Other Comment Pt advised 2-3 day length of stay per surgeon Additional comment Pt lives in [place], but will stay with sister for care at [place] Feels Safe in Current Environment Yes Been Physically Hurt or Threatened By a No Person in Current Environment Do you have thoughts of harming yourself None or others? Are you currently considering suicide? No Do you have a plan to hurt yourself or No Plan others? Do You Have Any Spiritual Beliefs That No May Affect Your HC Choices? Do You Have Any Cultural Practices That No May Affect Your HC Choices? Comment Nondenominational Who Can We Speak to About Patient's Care Family, friends Identifying Code for Release of Patient Declines to issue Information Health Care Proxy/Next of Kin Asif () Loni (sister) Health Care Proxy Phone Number Asif: [phone] Loni: Emergency Contact Name Asif () Loni (sister) Emergency Contact Phone Number Aisf: [phone] Loni: Advance Directives? Yes: Living will Advance Directives on File No Requested Patient Bring Advanced Yes Directives DOS Power of Cost Specialist No PAC Instructions Do not shave/clip surgical site,Durable medical equipment ,Medications to take/avoid, Nasal antibiotic,No ETOH/ petroleum product on skin DOS, NPO,Post-op transportation,Pre -surgical wash,Sturdy shoes/ comfortable clothes,Do not bring valuables and remove jewelry
--- NOTE | 2019-10-09 15:13 | PT.IPTN ---
Current Diagnoses Unilateral primary osteoarthritis, left knee (10/09/19) Surgery Performed Operation Date: 10/08/19 10:45 Actual Procedures p Total Knee Arthroplasty(Left) - Melva Feng MD Physical Therapy Treatment Note M2 PT-IP Current Condition Start: 10/08/19 15:19 Freq: NEEDED Status: Active Protocol: Document 10/08/19 16:16 AW (Rec: 10/08/19 16:38 AW [id number]) Physical Therapy Current Condition Current Condition Evaluation Date 10/08/19 Treatment Diagnosis L TKA; difficulty in walking Onset Date 10/08/19 Weight Bearing Status Weight Bearing Status Weight Bear as Tolerated M3 PT-IP Subjective Start: 10/08/19 15:19 Freq: NEEDED Status: Active Protocol: Document 10/09/19 14:31 SP (Rec: 10/09/19 17:05 SP [email or web address]) Subjective Physical Therapy Visit Type Type Treatment Note Visit Start Time 14:31 Visit Stop Time 15:13 Total Visit Minutes 42 Notes Pt's sister attended tx and completed caregiver training support. Number of ICE CREAM SHOP ASSOCIATE Visits 2 Physical Therapy Visit Comments Patient Comments pt willing to work with therapy. Patient Goals Planning to discharge to her sister's house until able to safely manage stairs. Therapy Pain Assessment Pain When Pain Assessed At Rest Pain Present Pain Present Pain Reported Location left knee Intensity 6 Scale Used 6/10 at rest, 7/10 during mobility Pain Behaviors Facial Grimacing,Moaning, Wincing Pain Management Techniques Apply Cold,Re-positioning, Timing of Activity with Medications M4 PT-IP Mobility and Gait Start: 10/08/19 15:19 Freq: NEEDED Status: Active Protocol: Document 10/09/19 14:31 SP (Rec: 10/09/19 17:05 SP [email or web address]) PT-Bed Mobility Assessment Supine to Sit Supine to Sit Standby Assistance,Bedrails Scooting Scooting to Edge of Bed Standby Assistance PT-Transfer Assessment Sit to and From Stand Sit to and from Stand Standby Assistance,Contact Guard Assistance,1 Person Assistance,Use of Upper Extremities Equipment Transfer Assistive Device Gait Belt,Front Wheeled Walker Orthotic/Prosthetic Devices or Brace: No Transfers Transfer Destination Chair,Toilet Transfer Ability Level of Assist Standby Assistance,Use of Upper Extremities Comments Mobility Comments Pt was supine resting when arrived. Sister in room stated patient was able to sleep about 1 hr and has been having numbness feelings on B side of face today. During tx nurse came to explain spoke with Dr Feng and numbness feeling might be from anesthesia and would like to have her stay another night for safety observation and continue with pain mgt. Supine> sitting SBA with use of bed rail, scoot to EOB sBA. Pt's sister donned gait belt for safety, Sit to stand CGA initially usign FWW with BUE support on bed, ambulated to bathroom using fWW SBA approx 8 ft, SPT and backed up to toilet, pt self undergarment mgt and slow descend to toilet using grab bar on L and FWW sBA. Self hygiene in sitting, sit to stand with grab bar and FWW sBA. Pt ambulated to sink with FWW and completed hand washing sBA, stable with one cue for FWW positioning in front and not off to side for safety support if needed. Pt was able to ambulate using FWW to platform step outside room : ascend/descend 1 step using FWW CGA and contact of FWW for safety support on step, cuing for LE and fWW placement positioning, assist provided by sister. Pt was able to walk further distance in hallway approx 160 ft total. [employer] ASSOCIATE and sister provided cuing for L knee flexion and heel toe phase patterning for improvement in quality. Pt tends to hip hike on L to clear foot, improved with repeated cuing. Pt sat in chair with good slow descent using BUE on chair arms sBA when returned to room. Reviewed knee flexion with ankle pumps in sitting to improve AROM approx 70 deg tolerated. Pt reported pain level still high with Tylenol but doesn't want to take strong pain meds. Pt was seated in chair with call light and all needs in reach when left, sister in room. Gait Assessment Gait Gait Assistance Required: Standby Assistance,Contact Guard Assist Distance (Feet) 160 Able to Maintain Weight Bearing Status Yes During Gait Assistive Devices Assistive Device Gait Belt,Front Wheeled Walker Orthotic/Prosthetic Devices or Brace: No Gait Deviations General Gait Pattern Antalgic,Decreased Stride Length,Decreased Feet Clearance,Flexed Trunk Factors Limiting Gait Function Factors Limiting Gait Function Decreased Activity Tolerance, Decreased Sensation,Decreased Strength,Difficulty Following Directions,Limited Range of Motion,Pain,Poor Balance,Poor Safety Awareness Comments Gait Comments See mobility comments for details. Stair Climbing Assessment Evaluation Level of Assist On Stairs Contact Guard Assistance,1 Person Assistance Devices Stair Climbing Assistive Devices Front Wheel Walker Technique/Endurance Stair Climbing Direction Ascend and Descend Stair Climbing Technique Step to Step Number of Steps Climbed 1 Stair Climbing Set # Repetitions (reps) 1 Comments Stair Climbing Comments See mobility comments for details. PT-Balance Assessment Sitting Balance and Reactions Static Sitting Balance Ability Normal Dynamic Sitting Balance Ability Normal Standing Balance and Reactions Static Standing Balance Ability Good Dynamic Standing Balance Ability Fair Device Used FWW M5 PT-IP Objective Assessments Start: 10/08/19 15:19 Freq: NEEDED Status: Active Protocol: Document 10/08/19 16:16 AW (Rec: 10/08/19 16:38 AW [id number]) Orientation Orientation/Cognition Level of Alertness Alert Orientation Name,Day of Week,Place, Situation Language Function Ability Expressive Aphasia Safety Awareness Decreased Safety Awareness Memory Description No Deficits Noted Gross Range of Motion Upper Extremity ROM Assessment Within Functional Limits Lower Extremity ROM Assessment Bilaterally Impaired Strength Lower Extremity Strength Assessment Bilaterally Impaired Hip 4-/5 Knee R 4/5; L 3/5 Coordination Assessment Gross Coordination Gross Coordination WNL Sensation Assessment Sensation Gross Sensation WNL M6 PT-IP Treatment Start: 10/08/19 15:19 Freq: NEEDED Status: Active Protocol: Document 10/09/19 14:31 SP (Rec: 10/09/19 17:05 SP [email or web address]) Physical Therapy Treatment Exercises Exercises Ankle Pumps,Quad Sets,Heel Slides,Seated Knee Flexion/ Extension Education Education Provided Precautions,Weight Bearing Status,Post-Op Packet,Safety Other Treatments Other Treatment Performed Weightbearing status, and safe use of FWW. M7 PT-IP Assessment and Plan Start: 10/08/19 15:19 Freq: NEEDED Status: Active Protocol: Document 10/09/19 14:31 SP (Rec: 10/09/19 17:05 SP [email or web address]) PT Summary Assessment and Plan Potential Rehabilitation Potential Good Status of Condition at Evaluation Evolving Summary Impairments Pain,ROM,Strength,Balance,Bed Mobility,Transfers,Gait, Activity Tolerance Assessment Summary Pt requires CGA- SBA during all mobility using fWW. Pt was able to walk further distance using FWW 160 ft total and ascend/descend 1 platform step to enter sister's home CGA using fWW. No report of dizziness but little numbness B face, see mobility comments. Pt is planning to stay with her sister when she discharges . Her sister's house is well- equipped and the sister has helped another sibling following knee surgery before. Recommending outpatient PT when safe to discharge. Goals Bed Mobility Goal Standby Assistance Transfer Goal Standby Assistance,Front Wheeled Walker Gait Goal Standby Assistance,Front Wheel Walker Gait Distance 150 Other Goals - up/down one platform step with FWW SBA Days to Meet Goals 2 Frequency of Treatment Frequency Of Treatment Twice a Day Treatment Plan Physical Therapy Treatment Plan Bed Mobility Training,Transfer Training,Gait Training, Therapeutic Exercise,Balance Retraining,Post Op Education, Discharge Planning,Hot or Cold Pack,Neuromuscular Re-ed Other Recommendations and Next Treatment Distance gait, ROM, LE ex. Focus Recommendations To Nursing Amount of Assist Needed 1 Person Assist Discharge Recommendations PT Discharge Recommendations Home with Assistance, Outpatient PT Equipment Needed for Home Before may consider tub transfer Discharge bench Transportation Needs at Discharge Private Vehicle
[2019-10-09 15:39] VITALS: BP 130/68; PULSE 74; RESP 18; TEMP 36.6; O2SAT 94
[2019-10-09] MEDS: ONDANSETRON 4 MG ODT PO (17:28)
[2019-10-09 20:32] VITALS: BP 117/62; PULSE 76; RESP 18; TEMP 36.2; O2SAT 95
[2019-10-10] VITALS: BP 135/73; PULSE 80; RESP 16; TEMP 36.7; O2SAT 94
[2019-10-10] MEDS: OXYCODONE IR 5 MG TABLET PO ×2 (01:07→05:45)
[2019-10-10] MEDS: ONDANSETRON 4 MG ODT PO ×3 (01:07→13:28)
[2019-10-10 03:57] VITALS: BP 125/74; PULSE 78; RESP 16; TEMP 37; O2SAT 94
[2019-10-10 07:45] VITALS: BP 124/71; PULSE 81; RESP 17; TEMP 36.7; O2SAT 93
[2019-10-10] MEDS: ACETAMINOPHEN 325 MG TABLET 650 MG PO ×2 (08:12→12:22)
[2019-10-10] MEDS: ASPIRIN EC 81 MG TABLET PO (08:12)
[2019-10-10] MEDS: DOCUSATE 100 MG CAPSULE PO (08:12)
--- NOTE | 2019-10-10 10:42 | PT.IPTN ---
Current Diagnoses Unilateral primary osteoarthritis, left knee (10/09/19) Surgery Performed Operation Date: 10/08/19 10:45 Actual Procedures p Total Knee Arthroplasty(Left) - Melva Feng MD Physical Therapy Treatment Note M2 PT-IP Current Condition Start: 10/08/19 15:19 Freq: NEEDED Status: Active Protocol: Document 10/08/19 16:16 AW (Rec: 10/08/19 16:38 AW [id number]) Physical Therapy Current Condition Current Condition Evaluation Date 10/08/19 Treatment Diagnosis L TKA; difficulty in walking Onset Date 10/08/19 Weight Bearing Status Weight Bearing Status Weight Bear as Tolerated M3 PT-IP Subjective Start: 10/08/19 15:19 Freq: NEEDED Status: Active Protocol: Document 10/10/19 10:19 KS (Rec: 10/10/19 13:15 KS [id number]) Subjective Physical Therapy Visit Type Type Treatment Note Visit Start Time 10:19 Visit Stop Time 10:42 Total Visit Minutes 23 Number of TECHNICAL INFORMATION SPECIALIST Visits 3 Physical Therapy Visit Comments Patient Comments pt willing to work with therapy. Patient Goals Planning to discharge to her sister's house until able to safely manage stairs. Therapy Pain Assessment Pain When Pain Assessed During Mobility Pain Present Pain Present Pain Reported Location left knee Scale Used no number given Description Aching,Tender,Tightness Pain Behaviors Guarding Pain Management Techniques Elevation,Re-positioning, Timing of Activity with Medications M4 PT-IP Mobility and Gait Start: 10/08/19 15:19 Freq: NEEDED Status: Active Protocol: Document 10/10/19 10:19 KS (Rec: 10/10/19 13:15 KS [id number]) PT-Bed Mobility Assessment Supine to Sit Supine to Sit Standby Assistance,Bedrails Sit to Supine Sit to Supine Standby Assistance Scooting Scooting to Edge of Bed Standby Assistance PT-Transfer Assessment Sit to and From Stand Sit to and from Stand Standby Assistance,Contact Guard Assistance,1 Person Assistance,Use of Upper Extremities Equipment Transfer Assistive Device Gait Belt,Front Wheeled Walker Orthotic/Prosthetic Devices or Brace: No Transfers Transfer Destination Bed,Chair Transfer Technique pt ambulated with FWW Transfer Ability Level of Assist Standby Assistance,Use of Upper Extremities Comments Mobility Comments Pt was exiting bathroom upon arrival from therapy. Able to maintain standing balance at sink for hygiene. Pt then ambulated ~100 ft w/ FWW and SBA. Pt needs cues for knee flexion when ambulating. She ambulated safely and slowly but demonstrated good use of FWW. She refused to do platform step, stating she will not have an issue completing step at home. Pt returned to room and got into and out of bed w/ SBA abd bed rails. Instructed pt how to use gait belt for LE assistance if needed. Pt CGA for sit<>stand from bed and then transferred to chair w/ FWW SBA. Pt left reclined in chair w/ all needs in reach. Gait Assessment Gait Gait Assistance Required: Standby Assistance Distance (Feet) 100 Able to Maintain Weight Bearing Status Yes During Gait Assistive Devices Assistive Device Gait Belt,Front Wheeled Walker Orthotic/Prosthetic Devices or Brace: No Gait Deviations General Gait Pattern Antalgic,Decreased Stride Length,Decreased Feet Clearance,Flexed Trunk Factors Limiting Gait Function Factors Limiting Gait Function Decreased Activity Tolerance, Decreased Sensation,Decreased Strength,Difficulty Following Directions,Limited Range of Motion,Pain,Poor Balance,Poor Safety Awareness Comments Gait Comments See mobility comments for details. PT-Balance Assessment Sitting Balance and Reactions Static Sitting Balance Ability Normal Dynamic Sitting Balance Ability Normal Standing Balance and Reactions Static Standing Balance Ability Good Dynamic Standing Balance Ability Fair Device Used FWW M5 PT-IP Objective Assessments Start: 10/08/19 15:19 Freq: NEEDED Status: Active Protocol: Document 10/08/19 16:16 AW (Rec: 10/08/19 16:38 AW [id number]) Orientation Orientation/Cognition Level of Alertness Alert Orientation Name,Day of Week,Place, Situation Language Function Ability Expressive Aphasia Safety Awareness Decreased Safety Awareness Memory Description No Deficits Noted Gross Range of Motion Upper Extremity ROM Assessment Within Functional Limits Lower Extremity ROM Assessment Bilaterally Impaired Strength Lower Extremity Strength Assessment Bilaterally Impaired Hip 4-/5 Knee R 4/5; L 3/5 Coordination Assessment Gross Coordination Gross Coordination WNL Sensation Assessment Sensation Gross Sensation WNL M6 PT-IP Treatment Start: 10/08/19 15:19 Freq: NEEDED Status: Active Protocol: Document 10/10/19 10:19 KS (Rec: 10/10/19 13:15 KS [id number]) Physical Therapy Treatment Exercises Exercises Ankle Pumps,Quad Sets,Heel Slides,Seated Knee Flexion/ Extension Education Education Provided Precautions,Weight Bearing Status,Post-Op Packet,Safety Other Treatments Other Treatment Performed Weightbearing status, and safe use of FWW. M7 PT-IP Assessment and Plan Start: 10/08/19 15:19 Freq: NEEDED Status: Active Protocol: Document 10/10/19 10:19 KS (Rec: 10/10/19 13:15 KS [id number]) PT Summary Assessment and Plan Potential Rehabilitation Potential Good Status of Condition at Evaluation Evolving Summary Impairments Pain,ROM,Strength,Balance,Bed Mobility,Transfers,Gait, Activity Tolerance Assessment Summary Pt SBA for bed mobility and ambulation, SBA to CGA for transfers. Pt ambulated ~100 ft w/ FWW SBA w/ cues for knee flexion. Pt able to get into and out of bed SBA w/ bed rail . Reviewed LE exercises, which pt tolerated well. Pt refused further stair training, stating step at home is more shallow and can fit entire FWW on. She will benefit from outpatient rehab, which she has set up, to improve strength and ROM. Goals Bed Mobility Goal Standby Assistance Transfer Goal Standby Assistance,Front Wheeled Walker Gait Goal Standby Assistance,Front Wheel Walker Gait Distance 150 Other Goals - up/down one platform step with FWW SBA Days to Meet Goals 2 Frequency of Treatment Frequency Of Treatment Twice a Day Treatment Plan Physical Therapy Treatment Plan Bed Mobility Training,Transfer Training,Gait Training, Therapeutic Exercise,Balance Retraining,Post Op Education, Discharge Planning,Hot or Cold Pack,Neuromuscular Re-ed Other Recommendations and Next Treatment Distance gait, ROM, LE ex. Focus Recommendations To Nursing Amount of Assist Needed 1 Person Assist Discharge Recommendations PT Discharge Recommendations Home with Assistance, Outpatient PT Equipment Needed for Home Before may consider tub transfer Discharge bench Transportation Needs at Discharge Private Vehicle
--- NOTE | 2019-10-10 11:21 | P.DS_ITS ---
History of Present Illness History of Present Illness Date Patient Seen: 10/10/19 Time Patient Seen: 11:22 Chief complaint: Left Total Knee Arthroplasty*OPB* Narrative: She notes that she is doing better. She had a left total knee arthroplasty. She did have some problems with dizziness and feeling lightheaded yesterday. It is better today. She is tolerating oral pain medicines as long as she has Zofran to go with them. She has been ambulating with her walker in the [place] with therapy. Discharge Providers Provider Date of admission: 10/09/19 14:34 Discharge Date: 10/10/19 Consults: 09/25/19 09:41 Consult to Respiratory Therapy Evaluate & Treat Comment: INPT 10/07 - pt wants a nicotine patch Physician Instructions: Evaluate and treat 10/08/19 07:43 Consult to Anesthesiology Routine Comment: Consulting Provider: Anesthesiologist Reason for consultation: Regional block for post operative pain control 10/08/19 14:01 Consult to Discharge Planning Routine Comment: Consult to Physical Therapy Evaluate & Treat Comment: Physician Instructions: postop TKA protocol Consult to Respiratory Therapy Evaluate & Treat Comment: Physician Instructions: Evaluate and treat Discharge provider: Melva Feng MD Summary Hospital Course Discharge Diagnosis: Severe left knee osteoarthritis, left total knee arthroplasty Hospital Course: Patient is taken operating room she underwent a left total knee arthroplasty she tolerated the procedure without difficulty. She was mobilized with physical therapy but did have some problems with nausea as well as lighth eadedness. She spent 1 day in the hospital for stabilization of her medical issues. She was noted to be ambulating well who was stable for discharge after clearance by physical therapy. Status at Discharge Cognitive/behavioral status at discharge: oriented Functional status at discharge: uses cane/walker Overall status at discharge: patient is progressing back to baseline Time Spent with Patient Time spent: Less than 30 minutes Exam Vital Signs (past 8 hours): - 10/10/19 03:57 10/10/19 07:45 Temperature 98.6 F 98.0 F Pulse Rate 78 81 Respiratory Rate 16 17 Blood Pressure 125/74 124/71 Pulse Oximetry 94 93 Oxygen Delivery Method Room Air Oxygen Flow Rate 0 Narrative Exam Narrative: HEENT is benign, lungs are clear she can do a weak straight leg raise on the left her dressings intact there is no drainage there is no erythema under calfs are soft bilaterally. Objective Labs Result Diagrams: 10/09/19 06:20 Discharge Assessment & Plan Assessment and Plan Assessment: Doing well status post left total knee arthroplasty plan is to discharge her to self-care at her sister's house she has outpatient physical therapy arranged. She will keep her postoperative follow-up in 10 days or so. Discharge Plan Discharge Plan Patient Disposition: Home Discharge comment: Discharge to home when cleared by physical therapy Discharge orders & Medications Prescriptions: New polyethylene glycol 3350 17 gram Powder In Packet 17 gm PO DAILY PRN (Reason: Constipation) Qty: 30 RF: 0 aspirin 81 mg Tablet,Delayed Release (Dr/Ec) 81 mg PO DAILY Qty: 90 RF: 0 ibuprofen 400 mg Tablet 400 mg PO Q4HR Qty: 60 RF: 0 oxycodone 5 mg Tablet 5 mg PO Q3HR PRN (Reason: Pain, Moderate (4-6)) Qty: 40 RF: 0 ondansetron HCl [Zofran] 4 mg tablet 4 mg PO Q6H PRN (Reason: nausea and vomiting) Qty: 20 RF: 0 Continued clotrimazole 10 mg Caitlyn 10 mg MUCOUS MEMBRANE TID PRN (Reason: Mold allergy) RF: 0 acetaminophen [Acetaminophen Extra Strength] 500 mg Tablet 1,000 mg PO Q6H PRN (Reason: Pain) RF: 0 potassium gluconate 595 mg (99 mg) Tablet 595 mg PO DAILY PRN (Reason: Muscle cramps) RF: 0 loratadine [Claritin] 10 mg Tablet 10 mg PO DAILY PRN (Reason: Season allergies) RF: 0 Follow up/Referrals: Melva Feng MD [Physician] - Diet/Activity/Treatments Diet: Diet as Tolerated Activity: Walk multiple times a day. Cold/Heat Therapy: Use ice multiple times a day. Skin/Wound/Dressing Care Report to your healthcare provider any signs of infection, such as:: chills, fever, night sweats, increased pain, unusual drainage and unusual redness Dressing: Removed Lg wrap. Keep dressing on. Okay to shower Visit Report/Discharge Packet Instructions: DI for Knee Replacement, How to Prevent Falls, DI for Postoperative Pain, DI for Prescription Opioid Use Stand Alone Forms: Surgery Discharge Visit Report Forms: Patient Portal/API, Stroke Signs & Symptoms Discharge Data Attending Provider: Melva Feng Admit Date/Time: 08/26/20 14:34 Quality VTE Deep Vein Thrombosis/Pulmonary Embolism Present on Admission: No
[2019-10-10 11:50] VITALS: BP 105/68; PULSE 79; RESP 17; TEMP 36; O2SAT 96
--- NOTE | 2019-10-10 12:24 | PC.NURSE ---
Day Shift- Discharge summary packet reviewed with pt. Pt states already having follow up appt with Dr. Feng. PRN Tylenol given at 1220 prior to discharge home. Pt's sister is coming to pick pt up for discharge. Pt had no further voiced concerns. Aware to potato picker stool softeners from pharmacy to prevent constipation. pt states having all her personal belongings.
--- NOTE | 2019-10-10 13:35 | PC.NURSE ---
Pt out via w/c by DIGITAL TECHNICIAN to POV with sister and all belongings.
== END 2019-10-10 13:36 | disposition home or self-care (01) ==
LOC: OR 14:45 → AC 14:46
PROVIDERS: Admitting Provider Orthopaedic Surgery; Referring Provider Orthopaedic Surgery; Visit Provider Orthopaedic Surgery
PROC: 0SRD0JZ Replacement of Left Knee Joint with Synthetic Substitute, Open Approach (ICD-10-PCS; CPT 27447; principal; 2019-10-08 10:45)
DX: M17.12 Unilateral primary osteoarthritis, left knee (principal); E66.9 Obesity, unspecified; K21.9 Gastro-esophageal reflux disease without esophagitis; F17.210 Nicotine dependence, cigarettes, uncomplicated
CPT/HCPCS: 27447; 36415; 36592; 73560; 85014; 85018; 97116; 97161; 97530; C1776; G0378; C9290; J0690; J1200; J2250; J2704; J3010